=== PATIENT | female | born 1975 | race Caucasian/White ===

== ENCOUNTER 2016-08-29 09:05 | Emergency (ER) | payer OTHER ==
[~2016-08-29 09:05] MED LIST: ALPRAZOLAM; ALPRAZOLAM PO; AMOXIL500 M1 PO; KETOPROFEN PO; LOPRESSOR PO; METHADONE PO; PEN-VEE K PO; RELPAX40 MG PO; SEPTRA DS PO; SEROQUEL50 MG PO; VICODIN PO
== END 2016-08-29 09:57 | disposition left against medical advice (07) ==
LOC: CED 09:05
DX: Z53.21 Procedure and treatment not carried out due to patient leaving prior to being seen by health care provider (principal)

== ENCOUNTER 2016-10-20 20:52 | Inpatient (IN) | payer OTHER ==
[~2016-10-20] VITALS: Ht 165.1 cm; Wt 74.8 kg
--- NOTE | ~2016-10-20 | PN ---
Unit #: [id number] #: [id number] Patient: SERGIO HYLTON [id number] [facility] [address] [place] [address] [id number] MR#: [id number] NAME: SERGIO HYLTON. ROOM: P122 Age: 41 Sex: F Admission Date: 10/20/2016 : 1975 Attending Physician: Damion Gilbert M.D. Admitting Physician: Damion Gilbert M.D. Primary Care Physician: Primary Care Physician Tanisha DE SOUZA PROGRESS NOTES DATE 10/22/2016 DISCUSSION This physician has learned that the patient was actually admitted to [facility] for 5 days prior to coming almost immediately to this facility. More to the point, the patient is insisting today that this facility "place her" suggesting that we find her an apartment at [facility]. I have firmly redirected this expectation explaining to the patient that we can provide her with information regarding resources for the homeless and have told her to expect a.m. discharge. Dictated by... Damion Gilbert M.D. CB/velia TD: 10/22/2016 15:40 JOB #: [id number] AP PROGRESS NOTES Page 1 of 1 X Damion Gilbert MD PROGRESS NOTE
--- NOTE | ~2016-10-20 | HP ---
Unit #: [id number] #: [id number] Patient: MARY HYLTON [id number] [place] [address] [id number] MR#: [id number] NAME: MARY HYLTON. ROOM: P122 Age: 41 Sex: F Admission Date: 10/20/2016 : 1975 Attending Physician: Damion Gilbert M.D. Admitting Physician: Damion Gilbert M.D. Primary Care Physician: Primary Care Physician No HISTORY AND PHYSICAL HISTORY OF PRESENT ILLNESS Mary is a 41 year old admitted to [address] [place] [address] with depression and verbalizing wanting to hurt herself. PAST MEDICAL HISTORY 1. History of illicit substance abuse. 2. High blood pressure. 3. Seizure disorder. 4. COPD. PAST SURGICAL HISTORY Nothing reported. ALLERGIES Penicillin, sulfa. SOCIAL HISTORY Smokes 1 pack per day. Drinks alcohol socially. Admits to a history of illicit substance abuse to include abusing benzodiazepines, crack cocaine and marijuana. FAMILY HISTORY Medically noncontributory. REVIEW OF SYSTEMS CONSTITUTIONAL: No fever or chills. HEENT: Denies any sore throat, ear pain or runny nose. CARDIOVASCULAR: Denies chest pain, irregular heart rhythm or palpitations. CHEST: Denies shortness of breath or cough. No hemoptysis. GASTROINTESTINAL: Denies nausea, vomiting, diarrhea or chronic constipation. ENDOCRINE: Denies history of increased thirst or urination. No recent significant weight loss or gain. GENITOURINARY: Denies dysuria, frequency, or hematuria. SKIN: Denies any rashes. HEMATOLOGIC: Denies history of increased bleeding or bruising. MUSCULOSKELETAL: Denies any hot, swollen joints. No generalized muscle pain. NEUROLOGIC: Denies problems with vision or speech. No frequent, severe headaches. No numbness, tingling or weakness in any extremities. Denies loss of bladder or bowel control. CURRENT MEDICATIONS Unit #: [id number] #: [id number] Patient: MARY HYLTON 1. Topamax 200 mg q.h.s. 2. Zyban SR 150 mg b.i.d. 3. Lorazepam p.r.n. 4. Motrin p.r.n. 5. Prozac 60 mg daily. 6. Milk of Magnesia p.r.n. 7. Maalox p.r.n. 8. Tylenol p.r.n. PHYSICAL EXAMINATION GENERAL: Alert, obese, in no apparent distress. VITAL SIGNS: Blood pressure 140/90, heart rate 80, respirations 16, temperature 98.6. WEIGHT: 165. HEIGHT: 5 feet 5 inches. SKIN: Warm and dry without rash or lesion. HEENT: Normocephalic. TMs not viewed. Oral and nasal passages clear. Conjunctivae clear. PERRLA. EOMs intact. NECK: Supple without lymphadenopathy or thyromegaly. HEART: Regular rate and rhythm without murmur. LUNGS: Clear. ABDOMEN: Soft, nontender. : Not done. EXTREMITIES: No evidence of cyanosis, clubbing or edema. Moves all without focal deficit. NEUROLOGICAL: Grossly within normal limits. Cranial Nerves: II: Visual castillo are intact. III, IV AND : Extraocular movements are intact. Pupils are equal, round and reactive to light. V: Facial sensation is grossly normal. VII: Facial movements and expression are normal. VIII: Auditory acuity grossly intact. IX, X: Uvula is midline. Phonation is normal. XI: Patient shrugs shoulders and turns head normally. XII: Tongue protrudes in the midline. Sensory and Motor Function: Sensory and motor sensation is grossly normal. Motor: moves all extremities well. Coordination: Gait is normal. Deep Tendon Reflexes: Intact. IMPRESSION Psychiatric admission. RECOMMENDATIONS PSYCHIATRIC: Per psychiatrist. MEDICAL: See no contraindication to participate in facility's activities. MEDICAL PROGNOSIS Good. MEDICAL CONDITION Stable. Dictated by... Renetta Hayes P.A.-C. for [facility]/formerly [facility], [facility] Unit #: [id number] #: [id number] Patient: MARY HYLTON TD: 10/21/2016 20:36 JOB #: [id number] HISTORY AND PHYSICAL Page 1 of 1 X Renetta Hayes HISTORY AND PHYSICAL
--- NOTE | ~2016-10-20 | DS ---
Unit #: [id number] #: [id number] Patient: SERGIO HYLTON [id number] [facility] [address] [place] [address] [id number] MR#: [id number] NAME: SERGIO HYLTON. ROOM: P122 Age: 41 Sex: F Admission Date: 10/20/2016 : 1975 Discharge Date: 10/23/2016 Attending Physician: Damion Gilbert M.D. Primary Care Physician: Primary Care Physician No DISCHARGE SUMMARY REASON FOR ADMISSION The patient is a 41-year-old white female admitted after she had been brought to this facility by her father claiming to be suicidal. HOSPITAL COURSE The patient was admitted to the [address] [place] [address] unit and placed on suicidal precautions. The patiently implied that she had been admitted at [facility]. However, this physician became aware that the patient had been in fact at the [facility] for some five days prior to coming to this facility. Apparently her father had brought her here almost immediately upon her release from [facility] with the patient's and family's expectations that she would be provided with housing by this facility. The patient going so far as to say that she wished us to arrange for her to "[facility] or an apartment like that." The patient's expectations regarding this were firmly redirected and she was given information regarding the resources for the homeless. On 10/23 the patient complained that "the staff doesn't know what they are doing." She also reported that she had made arrangements to live with her ex-boyfriend upon discharge and it was so ordered. DISCHARGE DIAGNOSES 1. Major depressive disorder recurrent moderate. 2. Rule out malingering. DISPOSITION ON DISCHARGE The patient is discharged on the following medications: 1. Prozac 60 mg daily for depression. 2. Motrin 800 mg q 8 hours p.r.n. pain. 3. Topamax 200 mg at bedtime for migraine headache. 4. Aristocort apply twice daily to rash. 5. Wellbutrin SR 150 mg twice daily for depression. DIET AND ACTIVITY No dietary or physical restrictions were placed on the patient at the time of discharge. Followup to take place through the auspices of community mental health resources. Patient's prognosis is considered fair. Unit #: [id number] #: [id number] Patient: SERGIO HYLTON by... Damion Gilbert M.D. CB/taran TD: 10/23/2016 23:58 JOB #: [id number] DISCHARGE SUMMARY Page 1 of 1 X Damion Gilbert MD X DISCHARGE SUMMARY
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
[2016-10-22 10:33] LABS: BASOPHIL% 0.3 % (0-2.5); EOSINOPHIL# 0.1 X10e3 (0-0.7); EOSINOPHIL% 0.4 % (0.0-7.0); HEMATOCRIT 36.7 % (35.0-45.0); LYMPHOCYTE# 4.1 X10e3 (1.0-3.5); LYMPHOCYTE% 25.9 % (17.0-45.0); MEAN CELL VOLUME 89.7 FL (83-96); MEAN CORPUSCULAR HEMOGLOBIN 29.3 PG (28-34); MEAN CORPUSCULAR HGB CONC 32.7 g/dL (30-36); MEAN PLATELET VOLUME 10.4 FL (6.5-11.5); MONOCYTE# 0.9 X10e3 (0-1.0); MONOCYTE% 6.1 % (3.0-12.0); NEUTROPHIL# 10.5 X10e3 (1.5-7.1); NEUTROPHIL% 67.3 % (40-75); PLATELET COUNT 336 X10e3 (140-420); RED BLOOD COUNT 4.09 X10e (3.90-5.30); RED CELL DISTRIBUTION WIDTH 14.3 % (11.0-15.5); WHITE BLOOD COUNT 15.6 X10e3 (4.0-10.5)
[2016-10-22 10:35] LABS: DIFF IND YES
[2016-10-22 11:04] LABS: PLATELET ESTIMATE NORMAL (NORMAL)
[2016-10-22 12:14] LABS: BILIRUBIN,TOTAL 0.7 mg/dL (0.2-2.0); CALCIUM SERUM 9.4 mg/dL (8.4-10.2); CREATININE SERUM 0.7 mg/dL (0.6-1.4); GLOM FILT RATE Estimated 108.4 mL/min (>60); POTASSIUM 3.7 mmol/L (3.5-5.1)
== END 2016-10-23 11:30 | disposition home or self-care (01) | DRG 885 ==
LOC: P1S 22:08 → P2S 10-21 18:53 → P1S 10-21 18:54
PROVIDERS: Specialist
DX: F33.1 Major depressive disorder, recurrent, moderate (principal); R45.851 Suicidal ideations; I10 Essential (primary) hypertension; F12.10 Cannabis abuse, uncomplicated; F60.3 Borderline personality disorder; F60.2 Antisocial personality disorder; F17.210 Nicotine dependence, cigarettes, uncomplicated; Z88.0 Allergy status to penicillin; Z88.2 Allergy status to sulfonamides
CPT/HCPCS: 80053; 84703; 85025